=== PATIENT | male | born 1945 | race Caucasian/White ===

== ENCOUNTER 2023-08-04 14:35 | Emergency (ER) | payer MEDICARE, SELFPAY ==
[2023-08-04 14:41] VITALS: BMI 23.0
[2023-08-04 14:42] VITALS: BP 122/73
[2023-08-04 14:44] VITALS: BP 122/73
[2023-08-04 15:00] VITALS: BP 118/71
[2023-08-04 15:50] LABS: % Basophils 1.1 % (0-2); % Eosinophils 2.6 % (0-6); % Immature Granulocytes 0.5 % (0-0.5); % Lymphocytes 24.7 % (20.5-51.1); % Monocytes 7.9 % (1.7-9.3); % Neutrophils 63.2 % (42.2-75.2); Absolute Basophils 0.1 10^3/uL (0-0.2); Absolute Eosinophils 0.1 10^3/uL (0-0.7); Absolute Lymphocytes 1.4 10^3/uL (1.2-3.4); Absolute Monocytes 0.4 10^3/uL (0.1-0.6); Absolute Neutrophils 3.5 10^3/uL (1.4-6.5); Hematocrit 40.3 % (39.0-52.0); Hemoglobin 13.8 g/dL (13.0-18.0); Mean Corp Hgb Conc. 34.2 g/dL (33.0-37.0); Mean Corpuscular Hgb 29.7 pg (27.0-31.0); Mean Corpuscular Volume 86.9 fL (80.0-94.0); Mean Platelet Volume 10.2 fL (7.4-10.4); Nucleated Red Blood Cells % 0 % (-); Platelet Count 218 10^3/uL (130-400); Red Blood Cell Count 4.64 10^6/uL (4.70-6.10); Red Cell Dist. Width 13.1 % (11.5-14.5); White Blood Cell Count 5.5 10^3/uL (4.8-10.8)
[2023-08-04 16:01] VITALS: BP 101/81
[2023-08-04 16:08] LABS: ALT (SGPT) 13 U/L (0-50); AST (SGOT) 20 U/L (17-59); Albumin 4.1 g/dl (3.5-5.0); Alkaline Phosphatase 78 U/L (38-126); Blood Urea Nitrogen 17 mg/dl (9-20); Calcium 9.5 mg/dl (8.4-10.2); Carbon Dioxide 25 mmol/L (22-30); Chloride 108 mmol/L (98-107); Creatine Phosphokinase 36 U/L (55-170); Estimated Creatinine Clearance 72 ml/min; Glucose 143 mg/dl (70-99); Potassium 3.5 mmol/L (3.5-5.1); Sodium 142 mmol/L (135-145); Total Bilirubin 1.1 mg/dl (0.2-1.3); Total Protein 6.6 g/dl (6.3-8.2); eGFR > 60.00
--- NOTE | 2023-08-04 16:27 | ED.GENMED ---
History of Present Illness
General
Chief Complaint: Fall
Time Seen by Provider: 08/04/23 14:45
History of Present Illness
History of Present Illness:
78-year-old male presents to the emergency department for evaluation after a suspected fall. Patient was apparently porch states he was this. He was found outdoors by a neighbor with several clothing nonnormal was called. Patient denies any
injuries or pain at this time. is present at the bedside but she was not home during the event. Patient denies any chest pain or shortness of breath. He is not on any anticoagulants
Past History
Past History
ED Past Medical History: HTN, Hypercholesterolemia and NIDDM
ED Past Surgical History: Other (Anuerysm Infrarenal abd aorta)
Social History
Tobacco: Former smoker
Alcohol: Daily (whisky 1)
Personal:
Living: with family
Employment: Employed
Review of Systems
Review of Systems
Allergies reviewed?: Yes
All Other Systems: ROS reviewed and negative except as documented in HPI and ROS
Phy Exam
Physical Exam
Physical Exam:
GEN: Well appearing, NAD, WDWN
Eyes: PERRLA, EOMs intact, no scleral icterus
HENT: NCAT, oral mucosa moist
Lungs: CTAB, no wheezes, rales, rhonchi, normal chest wall excursion
Cardiac: RRR, no M/R/G, no peripheral edema. Radial pulses 2+ bilat
Abdomen: S, NT, ND, NABS, no masses or hepatosplenomegaly
Neuro: Alert and oriented to baseline. Cranial nerves II through XII grossly intact, bilateral upper and lower extremity strength is 5 out of 5 in all noyola
MSK: No gross deformity or ecchymosis. No edema. Stable pelvis with no crepitus or tenderness, normal bilateral hip range of motion. No midline cervical, thoracic, or lumbar spine tenderness to palpation
Skin: No rashes, petechiae. Normal color, no pallor or jaundice. Stage I decubitus ulcer to bilateral upper and lower gluteal regions
Psych: Calm, cooperative, proper hygiene
Course
Orders/Labs/Results
Orders:
Orders
08/04/23 15:11
CT Head W/o Iv Contrast Urgent
Comment:
Reason For Exam: fall unwitnessed
08/04/23 15:30
CPK [Creatine Phosphokinase] Urgent
Complete Blood Count/With Diff Urgent
Comprehensive Metabolic Panel Urgent
Abnormal Lab Results
08/04/23
15:30
RBC 4.64 L 10^6/uL
(4.70-6.10)
Chloride 108 H mmol/L
(98-107)
Glucose 143 H mg/dl
(70-99)
Creatine Kinase 36 L U/L
(55-170)
08/04/23 15:30
08/04/23 15:30
Vital Signs
Initial and Last Documented VS:
Initial Vital Signs
Pulse Resp Pulse Ox
78 21 96
08/04/23 14:41 08/04/23 14:41 08/04/23 14:41
Last Documented Vital Signs
Temp Pulse Resp BP Pulse Ox
99.5 F 82 21 122/73 93
08/04/23 14:42 08/04/23 14:45 08/04/23 14:45 08/04/23 14:44 08/04/23 14:45
MDM/Problems Addressed
MDM/Problems Addressed:
Patient's labs are reassuring. His temperature is and he has no diaphoresis concerning for environmental exposure issue. He was given some IV fluids and around via EMS. CT of the head is unremarkable and I see no evidence for other traumatic
injuries on exam, discharged into the care of his spouse
*Critical Care Note
Total Time (30-74mins, 75-104mins- exclusive of procedures): Not Applicable
ED Attending Note
-
Portions of this chart may have been created with voice recognition software.� Occasional wrong word or��sound alike� substitutions may have occurred due to the inherent limitations of voice recognition software.
Discharge Plan
Departure
Patient Disposition: Home (Routine Discharge)
Date of Disposition: 08/04/23
Time of Disposition: 16:27
Patient with high blood pressure during this ER visit?: No
Discharge Problem:
Unwitnessed fall
Instructions: Preventing falls in adults
Prescriptions:
No Action
metformin 500 MG tablet
1,000 mg PO BID
simvastatin 20 MG tablet
40 mg PO DAILY
coenzyme [id number] E 1 CAP capsule
1 cap PO DAILY
omega 1-kdx-oxn-fish oil 1 EACH capsule
1 ea PO DAILY
lisinopril 10 MG tablet
10 mg PO DAILY
cephalexin 500 MG capsule
500 mg PO QID 2 Days Qty: 8 0RF
Rx Instructions:
continue through 03/24/21 to complete 8 day antibiotic treatment regimen for cellulitis
Referrals:
Sergio Can MD [Family Provider] -
Discharge Date and Time
Print Language: VINCENTIAN
[2023-08-04 17:37] VITALS: BP 120/72
== END 2023-08-04 17:38 | disposition home or self-care (01) ==
LOC: EMR 14:35
PROVIDERS: Physician Assistant; EMERGENCY PHYSICIAN Emergency Medicine; FAMILY PHYSICIAN Internal Medicine
DX: Z04.3 Encounter for examination and observation following other accident (principal); I10 Essential (primary) hypertension; Z87.891 Personal history of nicotine dependence; W19.XXXA Unspecified fall, initial encounter
CPT/HCPCS: 99284; 70450; 80053; 82550; 85025

== ENCOUNTER 2024-02-01 11:15 | Observation (INO) | payer MEDICARE, SELFPAY ==
[2024-02-01] VITALS (10 sets, daily range): BP systolic 119–153; BP diastolic 74–90; PULSE 77; BMI 23.5
--- NOTE | 2024-02-01 05:33 | ED.GENMED ---
History of Present Illness
General
Chief Complaint: Fall
Source: patient, spouse ( who is at bedside) and ambulance crew
Exam Limitations: none
Time Seen by Provider: 02/01/24 05:09
Nursing documentation reviewed up to this point in time: agreed with
History of Present Illness
History of Present Illness:
This is an 79-year-old gentleman who resides at home with his . He has history of Alzheimer's dementia, hypertension, hyperlipidemia, GERD, mdg-ifzwelg-qfxospzdb diabetes. According to patient has had some generalized weakness over the
past 2 to 3 days, he has had a moist nonproductive cough and tonight he got up out of bed and suffered a fall while attempting to get out of bed.
She believes he struck his head. He did not lose consciousness.
He takes no anticoagulants.
He arrives via EMS.
Upon arrival patient noted to be significantly febrile with rectal temperature 101.3 �F. Both patient and were unaware that he was running a fever.
He has had a cough over the past several days. Mild dyspnea on exertion. Generalized weakness. No close contacts with similar symptoms.
Initially complaining of some left hip pain. He denies chest pain or abdominal pain, denies back pain or neck pain, denies headache. He does note mild pain to his right great toe and is noted to have complete avulsion of his right great toenail.
No active bleeding.
Prior history of smoking, he quit a number of years ago.
He has history of AAA, 3.1 cm, monitored annually with ultrasound.
Past History
Past History
ED Past Medical History: GERD, HTN, Hypercholesterolemia, NIDDM and Other (Dementia; 3.1 cm AAA)
ED Past Surgical History: None and Other (Anuerysm Infrarenal abd aorta)
Social History
Tobacco: Former smoker
Alcohol: Occasional (whisky 1)
Personal:
Living: with family
Employment: Retired
Family History
Family History: Other (Noncontributory)
Phy Exam
Physical Exam
Physical Exam:
GENERAL: 79-year-old gentleman appears his stated age, awake and alert, pleasant, mildly ill in appearance. Intermittent moist nonproductive cough is noted. is accompanying.
EYE: pupils equal and reactive. anicteric. The head is normocephalic, atraumatic.
NECK: Supple, no midline bony tenderness, full range of motion without difficulty nor pain, no meningismus, no significant adenopathy.
ENT: posterior pharynx is clear, oral mucosa is minimally dry. TM clear b/l, nares patent.
CARDIAC: Regular rate and rhythm. no murmur.
LUNGS: no acute respiratory distress, scant rales right base otherwise clear to auscultation. There is a superficial abrasion right anterior lower chest to right upper quadrant. No focal tenderness to palpation. No palpable bony abnormality.
ABDOMEN: Rotund, soft, nondistended, without focal tenderness, no r/g, no cvat. normoactive BS.
BACK: No midline bony tenderness. No palpable bony pelvic tenderness.
NEUROLOGICAL: Alert and oriented x2, no focal neuro deficits. Motor strength is 5/5 bilaterally. Gross sensation is intact.
SKIN: Mildly hot to touch and dry, normal color, skin intact. Superficial abrasion right upper quadrant/right anterolateral distal chest wall as above. No rash.
MUSCULOSKELETAL: No C/C/E. peripheral pulses are full and equal b/l. No palpable bony hip tenderness. Full hip range of motion bilaterally without difficulty nor pain. There is complete avulsion of right hallux toenail. Mild local tenderness to
palpation. No active bleeding.
PSYCH: Normal and appropriate interaction.
Course
Orders/Labs/Results
Orders:
Orders
02/01/24 05:03
Electrocardiogram (*1) Urgent
Reason for Study: Other
Other Reason for Exam: Possible Sepsis
Cardiac Monitoring- Treatment ONCE
EKG- Treatment ONCE
IV Insert/Care/Rem.- Treatment PRN
02/01/24 05:10
Complete Blood Count/With Diff Urgent
Comprehensive Metabolic Panel Urgent
Lactic Acid Q4H
Comment: ON ICE, CANCEL 2ND ORDER IF FIRST LACTIC ACID LEVEL <2
Urinalysis Reflex To Culture Urgent
Date Specimen was Collected: 02/01/24
Time Specimen was Collected: 05:03
Blood Culture Urgent
TUTU Source: Blood/Venous
Specimen Description:
Date Specimen was Collected: 02/01/24
Time Specimen was Collected: 05:04
02/01/24 05:11
COVID-19 Antigen Urgent
Source: Nasal Swab
Influenza A+B Rapid Molecular Urgent
TUTU Source: Nasal Swab
Specimen Description:
Date Specimen was Collected: 02/01/24
Time Specimen was Collected: 05:04
02/01/24 05:15
Blood Culture Urgent
TUTU Source: Blood/Venous
Specimen Description:
Date Specimen was Collected: 02/01/24
Time Specimen was Collected: 05:05
02/01/24 05:25
0.9% Sodium Chloride 1000 ml [Nss] 2,400 ml IV NOW STA
Acetaminophen 1000MG/100Ml [Ofirmev] 1,000 mg in 100 ml IV ONCE
Acetaminophen IV Indication:: ED Narcotic Naive Pt-ONCE
Foot, Right 3 View [CR Foot - Right Min 3 Views] Urgent
Comment:
Reason For Exam: fall, R great toe pain, foot pain
Hip, Left 2-3 Views [CR Hip - LT w/wo Pel 2-3 Vw*] Urgent
Comment:
Reason For Exam: fall, left hip pain
Include a pelvis x-ray?: Yes
02/01/24 05:26
CR Chest - 2 Views Urgent
Comment:
Reason For Exam: cough, fever
02/01/24 05:31
CT Head W/o Iv Contrast Urgent
Comment:
Reason For Exam: fall, questionable head injury
Abnormal Lab Results
02/01/24 02/01/24
05:10 05:11
RBC 4.65 L 10^6/uL
(4.70-6.10)
Absolute Lymphs (auto) 0.9 L 10^3/uL
(1.2-3.4)
Absolute Monos (auto) 0.8 H 10^3/uL
(0.1-0.6)
Neutrophils % 76.6 H %
(42.2-75.2)
Lymphocytes % 11.2 L %
(20.5-51.1)
Monocytes % 10.4 H %
(1.7-9.3)
BUN 22 H mg/dl
(9-20)
Glucose 196 H mg/dl
(70-99)
Urine Glucose 1+ A
(Negative)
SARS-CoV-2 Antigen Positive A
(Negative)
02/01/24 05:10
02/01/24 05:10
Vital Signs
Initial and Last Documented VS:
Initial Vital Signs
Temp
101.3 F H
02/01/24 04:40
Last Documented Vital Signs
Temp Pulse Resp BP Pulse Ox
101.3 F H 83 24 147/83 97
02/01/24 04:40 02/01/24 06:15 02/01/24 06:15 02/01/24 06:00 02/01/24 06:15
MDM/Problems Addressed
Differential Diagnosis Includes:
Patient presents after mechanical fall at home. Noted to be febrile along with history of cough over the past several days along with generalized weakness.
Concern for sepsis, pneumonia, UTI, viral syndrome.
Concern for occult closed head injury, occult left hip/pelvic fracture. Right great toe fracture.
Will initiate IV fluid bolus, IV Tylenol.
Labs are pending including lactic acid, COVID and flu testing, urinalysis with reflex to culture.
Will check CT of the head, chest x-ray, pelvis and left hip x-ray as well as right foot x-ray.
Chronic conditions affecting care: DM, HTN and Neurological disorder (Dementia)
*Pulse Oximetry
Patient hypoxic: no
*EKG
Interpreted by ED Provider?: Yes
Interpretation: normal
Comparison EKG: no comparison EKG present
Rate: normal
Rhythm: sinus
Radiant: normal axis
Interval: normal interval
QRS Pattern: normal QRS
Ischemia: no ischemia
*Protective Services Officer Interpretation
Rate: normal
Interpretation: normal
Rhythm: sinus
*Critical Care Note
Total Time (30-74mins, 75-104mins- exclusive of procedures): Not Applicable
Update Note
Update Note:
06:45
Patient is COVID-positive. I suspect this is source of his fever.
Due to profound weakness, fever, patient is at risk for recurrent falls, worsening debility, thus will require acute hospitalization.
Labs are unremarkable save for moderately elevated random glucose of 196. Lactic acid is normal. Urinalysis is negative.
Awaiting head CT and x-ray imaging.
ED Attending Note
-
Portions of this chart may have been created with voice recognition software.� Occasional wrong word or��sound alike� substitutions may have occurred due to the inherent limitations of voice recognition software.
Discharge Plan
Departure
Covid-19: Confirmed COVID-19
Discharge Problem:
COVID-19, mechanical fall at home, nail avulsion right hallux
Prescriptions:
No Action
metformin 500 MG tablet
1,000 mg PO BID
Patient Comments:
PHARMACY TO CHECK, hasnt taken meds in ' a long time'
simvastatin 20 MG tablet
40 mg PO DAILY
Patient Comments:
PHARMACY TO CHECK, hasnt taken meds in ' a long time'
coenzyme [id number]-qthnzbr E 1 CAP capsule
1 cap PO DAILY
Patient Comments:
hasn't taken any meds in 'a long time' PHARMACY TO CHECK
omega 1-owh-obv-fish oil 1 EACH capsule
1 ea PO DAILY
Patient Comments:
PHARMACY TO CHECK, hasnt taken meds in ' a long time'
lisinopril 10 MG tablet
10 mg PO DAILY
Patient Comments:
PHARMACY TO CHECK, hasnt taken meds in ' a long time'
glimepiride 2 mg Tablet
2 mg PO DAILY
Patient Comments:
PHARMACY TO CHECK, hasnt taken meds in ' a long time'
duloxetine 30 mg Capsule,Delayed Release(Dr/Ec)
30 mg PO DAILY
Patient Comments:
PHARMACY TO CHECK, hasn't taken meds in 'a lonb time'
Referrals:
Sergio Can MD [Family Provider] -
Interventions
Interventions:
*Risk Screen - Suicide Last Done: 02/01/24 04:53
*General Assessment Last Done: 02/01/24 04:53
*Neglect/Abuse Screening Last Done: 02/01/24 04:53
ED- Fall Risk Assessment Last Done: 02/01/24 04:58
*ED COVID-19 Vaccine History Last Done: 02/01/24 04:53
ED-Musculoskeletal Assessment Last Done: 02/01/24 04:58
ED- Neurological Assessment Last Done: 02/01/24 04:58
ED-Skin Assessment Last Done: 02/01/24 05:02
Discharge Date and Time
Print Language: ROMANSH
[2024-02-01 05:38] LABS: % Basophils 0.5 % (0-2); % Eosinophils 0.8 % (0-6); % Immature Granulocytes 0.5 % (0-0.5); % Lymphocytes 11.2 % (20.5-51.1); % Monocytes 10.4 % (1.7-9.3); % Neutrophils 76.6 % (42.2-75.2); Absolute Eosinophils 0.1 10^3/uL (0-0.7); Absolute Lymphocytes 0.9 10^3/uL (1.2-3.4); Absolute Monocytes 0.8 10^3/uL (0.1-0.6); Absolute Neutrophils 5.9 10^3/uL (1.4-6.5); Hematocrit 40.5 % (39.0-52.0); Hemoglobin 14.1 g/dL (13.0-18.0); Mean Corp Hgb Conc. 34.8 g/dL (33.0-37.0); Mean Corpuscular Hgb 30.3 pg (27.0-31.0); Mean Corpuscular Volume 87.1 fL (80.0-94.0); Mean Platelet Volume 9.9 fL (7.4-10.4); Nucleated Red Blood Cells % 0 % (-); Platelet Count 184 10^3/uL (130-400); Red Blood Cell Count 4.65 10^6/uL (4.70-6.10); Red Cell Dist. Width 13.1 % (11.5-14.5); White Blood Cell Count 7.7 10^3/uL (4.8-10.8)
[2024-02-01 05:42] LABS: COVID-19 Antigen Positive (Negative)
[2024-02-01 05:45] LABS: Lactic Acid 1.7 mmol/L (0.7-2.0)
[2024-02-01 05:46] LABS: ALT (SGPT) 20 U/L (0-50); AST (SGOT) 27 U/L (17-59); Albumin 4.5 g/dl (3.5-5.0); Alkaline Phosphatase 78 U/L (38-126); Blood Urea Nitrogen 22 mg/dl (9-20); Calcium 9.2 mg/dl (8.4-10.2); Carbon Dioxide 25 mmol/L (22-30); Chloride 99 mmol/L (98-107); Estimated Creatinine Clearance 81 ml/min; Glucose 196 mg/dl (70-99); Potassium 4.2 mmol/L (3.5-5.1); Sodium 135 mmol/L (135-145); Total Bilirubin 1.2 mg/dl (0.2-1.3); Total Protein 7.2 g/dl (6.3-8.2); Urine Albumin Negative (Neg - Trace); Urine Bilirubin Negative (Negative); Urine Character Clear (Clear); Urine Color Yellow; Urine Glucose 1+ (Negative); Urine Ketone Negative (Negative); Urine Leukocyte Negative (Negative); Urine Nitrite Negative (Negative); Urine Occult Blood Negative (Negative); Urine Urobilinogen Negative (Neg - 1+); eGFR > 60.00
[2024-02-01] MEDS: OFIRMEV 100 IV (05:58)
[2024-02-01] MEDS: NSS 2400 ML IV (06:01)
--- NOTE | 2024-02-01 08:35 | CM ---
Addendum entered by Monique Byrd RN 02/01/24 15:25:
CM confirmed discharge lemon picker time at 1700.
Addendum entered by Monique Byrd RN 02/01/24 14:24:
CM confirmed that MSSP Waiver program has been approved for [facility].
[facility]
Report:
[phone]

Addendum entered by Monique Byrd RN 02/01/24 14:05:
[facility] is able to accept. Patient and are in agreement with plan. CM [facility] to [facility].
Addendum entered by Monique Byrd RN 02/01/24 12:27:
Patient is eligible for MSSP program. CM provided patient's with choices through program. She is agreeable to have referrals sent to all facilities to increase likelihood of finding a bed.
[facility] letter given and discussed.
Referrals sent via [facility].
Original Note:
CM reviewed medical records. On review of insurance, patient has fee for service Medicare and will have to be private pay from the emergency room. CM updated ED physician. CM will follow PT recommendations for further discharge planning efforts.
MIO left message for Melodie at [facility] to confirm if patient is eligible for MSSP program.
--- NOTE | 2024-02-01 08:53 | PHANOTE ---
MED REC NOTE- PATIENT SPOUSE IN ROOM, SHE HAS PATIENT OLD MEDICATION BUT PATIENT HAS BEEN TAKING THEM FOR YEARS BUT TO A FAMILY TO [facility] TO HELP OUT AND CARE GIVE TO THE PATIENT. BUT THE FAMILY MIXED ALL MEDICATION UP INCLUDE SPOUSE MEDS. ID MEDS
IN [facility] TECH SIMVASTATIN 40MG QPM, MECLIZINE 12.5MG PRN, GLIMEPIRIDE 2MG DAILY. CYMBALTA 30MG DAILY
--- NOTE | 2024-02-01 10:39 | HPS.HSE ---
Family Physician
-
Family Physician: Christiano Can
Chief Complaint
-
Worsening weakness
History of Present Illness
79-year-old male with a past medical history of Alzheimer's dementia, dyspepsia, hypertension, nonalcoholic fatty liver disease, neuropathy, type 2 diabetes, spinal stenosis, abdominal aortic aneurysm, and gait dysfunction presented to the ER with
worsening weakness and mechanical fall. Patient has dementia, most of the history is obtained from his . His reports that he has been weak for months, and it has progressively worsened in the last 2-3 days. Patient was so weak he could
not get out of bed, and had a fall. He may have struck his head, no loss of consciousness. He was found to be febrile in the ER, with a rectal temperature of 101.3. He was found to have COVID. He has received his COVID vaccines and boosters.
reports that he has been having a dry cough and mild dyspnea with activity. No known sick contacts. No nausea, no vomiting, no diarrhea. No chest pain. He walks with a walker at home.
Medical History
Past Medical History
Past Medical History: Reports Other
Additional Past Medical History:
Alzheimer's dementia, dyspepsia, hypertension, nonalcoholic fatty liver disease, neuropathy, type 2 diabetes, spinal stenosis severe L4-L5, abdominal aortic aneurysm 3.2 cm, gait dysfunction
Past Surgical History: Reports Other
Additional Past Surgical History:
Excision of subcutaneous mass/lipoma of right mid back, sebaceous cyst removal, bilateral cataract surgery, wisdom teeth, right lower leg wound debridement, AAA surg
Social History
Tobacco: Former Smoker
Alcohol: Daily
Drug: None
Personal:
Living: With Family
Family History
Family History: Other (Father: Heart disease, hypertension. Mother: Hypertension, heart disease, and stroke.)
Allergies / Home Medications
Allergies reflects when Allergies were last updated in [employer].
Home Medications with original date entered in [employer]
Allergy/Medication List:
Allergies
Allergy/AdvReac Type Severity Reaction Status Date / Time
penicillin V Allergy Hives Verified 02/01/24 10:46
Penicillins Allergy Hives Verified 02/01/24 10:46
Home Medications Table - record
�Medication �Instructions �Recorded �Confirmed
No Meds [No Current Medications] 02/01/24 02/01/24
Review of Systems
-
A 12 point ROS was completed and negative except as noted: Yes
Physical Exam
Vital Signs
Vital Signs
Temp Pulse Resp BP Pulse Ox
98.1 F 74 18 150/77 98
02/01/24 07:40 02/01/24 08:00 02/01/24 08:00 02/01/24 08:00 02/01/24 07:05
Physical Exam
General: No Apparent Distress
HEENT: NormoCephalic, Anicteric and Moist mucous membranes
Respiratory: Clear
Cardiac: S1/S2 and Regular Rhythm
GI: Soft, Non Tender, Non Distended and Normal Bowel Sounds
Musculoskeletal: No Clubbing and No Cyanosis
Neuro: Oriented (Oriented to person and place but not time)
Psych: Calm
Laboratory Results
-
02/01/24 05:10
02/01/24 05:10
Laboratory Results
Lactic Acid Cancelled 02/01/24 09:15
Total Bilirubin 1.2 mg/dl (0.2-1.3) 02/01/24 05:10
AST 27 U/L (17-59) 02/01/24 05:10
ALT 20 U/L (0-50) 02/01/24 05:10
Alkaline Phosphatase 78 U/L (38-126) 02/01/24 05:10
Impression/Plan
-
HPI: 79-year-old male with a past medical history of Alzheimer's dementia, dyspepsia, hypertension, nonalcoholic fatty liver disease, neuropathy, type 2 diabetes, spinal stenosis, abdominal aortic aneurysm, and gait dysfunction presented to the ER
with worsening weakness and mechanical fall. Patient has dementia, most of the history is obtained from his . His reports that he has been weak for months, and it has progressively worsened in the last 2-3 days. Patient was so weak he
could not get out of bed, and had a fall. He may have struck his head, no loss of consciousness. He was found to be febrile in the ER, with a rectal temperature of 101.3. He was found to have COVID. He has received his COVID vaccines and
boosters. reports that he has been having a dry cough and mild dyspnea with activity. No known sick contacts. No nausea, no vomiting, no diarrhea. No chest pain. He walks with a walker at home.
#Acute on chronic weakness
#Mechanical falls
Head CT negative for acute intracranial abnormalities, hip and foot x-ray negative for acute fracture or dislocation
Patient has been chronically weak for the last 2-3 months, now worsened secondary to acute coronavirus infection
Seen by PT in the ER, who recommends short-term rehab at half-way facility
Case management arranging for short-term rehab
Discharge to short-term rehab when bed available
#Acute coronavirus infection
Chest x-ray negative for pneumonia
He has received his coronavirus vaccines and booster
Patient is afebrile, has a mild cough
Fever started 02/01/24, isolate for 10 days through 02/11/24
Start Paxlovid day 1, Macy Chaparro, supportive care
#Alzheimer's dementia
He is oriented to person and place but not time
Makes his own medical decisions
#Type 2 diabetes
He used to be on glimepiride 2 mg daily & metformin 1000 mg BID, he has not taken it
Check hemoglobin A1c, carb controlled diet, sliding scale insulin for now
#Benign essential hypertension
He used to be on lisinopril 10 mg daily, he has not taken it
Resume lisinopril 10 mg daily here
#Anxiety/depression
He used to be on duloxetine 30 mg daily, he has not taken
Resume duloxetine 30 mg daily
#Hyperlipidemia
He used to be on simvastatin 40 mg daily
This medication is contraindicated while on Paxlovid
DVT ppx - SQ lovenox
DNR confirmed upon admission in front of
Total time spent to see the patient on the floor, examine the patient, review data and lab results, discuss treatment plan with patient, nursing staff around 77 minutes.
[2024-02-01] MEDS: PAXLOVID 2X150 MG-100 MG DOSE PACK 1 DOSE PO (10:55)
[2024-02-01] MEDS: ZESTRIL 10 MG PO (12:11)
--- NOTE | 2024-02-01 14:42 | W.DCSUMMARY ---
Discharge Summary
Discharge Data
Date of Admission: 02/01/24
Date of Discharge: 02/01/24
-
Pending Results: No
Hospital Course
Discharge diagnosis:
Acute on chronic weakness
Mechanical fall
Acute coronavirus infection
Alzheimer's dementia
Type 2 diabetes
Benign essential hypertension
Hyperlipidemia
Hospital course:
79-year-old male with a past medical history of Alzheimer's dementia, dyspepsia, hypertension, nonalcoholic fatty liver disease, neuropathy, type 2 diabetes, spinal stenosis, abdominal aortic aneurysm, and gait dysfunction presented to the ER with
worsening weakness and mechanical fall. Patient has dementia, most of the history is obtained from his . His reports that he has been weak for months, and it has progressively worsened in the last 2-3 days. Patient was so weak he could
not get out of bed, and had a fall. He may have struck his head, no loss of consciousness. He was found to be febrile in the ER, with a rectal temperature of 101.3. He was found to have COVID. He has received his COVID vaccines and boosters.
reports that he has been having a dry cough and mild dyspnea with activity. No known sick contacts. No nausea, no vomiting, no diarrhea. No chest pain. He walks with a walker at home.
Patient has been chronically weak for the last 2-3 months, now worsened secondary to acute coronavirus infection.
Head CT was negative for acute intracranial abnormalities, hip and foot x-ray also negative for acute fracture or dislocation.
Patient was treated with Paxlovid for his coronavirus. He also received supportive care with Mucinex. He can continue Paxlovid upon discharge.
Patient has not been receiving his medications at home. He was resumed on lisinopril 10 mg daily, glimepiride 2 mg daily, metformin 1000 mg twice a day, and duloxetine 30 mg daily.
He is supposed to be taking simvastatin as well. This medication is contraindicated while taking Paxlovid.
Patient was seen in conjunction with speech pathologist, who recommends a soft/bite-size diet with thin liquids. He needs to follow-up with [facility] at the rehab.
Patient is medically stable for discharge. He needs to isolate through 02/11/2024 for his coronavirus. He needs to follow-up with his primary care doctor 1 week after he leaves rehab.
Disposition: Short-term rehab
Discharge planning: Required 39 minutes
Discharge Plan
-
Patient Disposition: [facility]NF
Discharge Diagnosis/Procedures: Acute on chronic weakness, acute coronavirus infection, diabetes, dementia, hypertension
Condition: Fair
Diet: Diabetic, Carb Controlled
Activity: As tolerated
Activity Restrictions/Additional Instructions:
Follow-up with your primary care doctor 1 week after you leave rehab.
Referrals:
Sergio Can MD [Family Provider] - in one week
Prescriptions:
New
acetaminophen 325 mg Tablet
650 mg PO Q4HPRN PRN (Reason: mild pain/SUNG/temp> 100.4F) Qty: 0 0RF
Paxlovid 300 mg (150 mg x 2)-100 mg Tablets,Dose Pack
1 ea PO BID 5 Days Qty: 10 0RF
lisinopril 10 mg Tablet
10 mg PO DAILY Qty: 0 0RF
duloxetine 30 mg capsule, delayed rel sprinkle
30 mg PO DAILY Qty: 30 0RF
guaifenesin [Mucinex] 600 mg tablet extended release 12hr
600 mg PO BID Qty: 60 0RF
glimepiride 2 mg tablet
2 mg PO DAILY Qty: 30 0RF
metformin 1,000 mg tablet
1,000 mg PO BID Qty: 60 0RF
Discharge Orders:
Discharge Patient (As Directed); Ordered 02/01/24
Ordered By: Mati Rodriguez
Discharge Date and Time
Print Language: ARMENIAN
--- NOTE | 2024-02-01 15:35 | PTOTSP ---
ST Acute Care Evaluation
Pt currently presents with clinical signs consistent with mild oropharyngeal and esophageal dysphagia characterized by prolonged mastication and bolus formation, prolonged oral bolus manipulation and prolusion posteriorly, occasional overt s/s of
penetration/aspiration with both solids and liquids, as well as persistent eructation s/p ingestion of liquids.
Recommendations:
- DOWNGRADE diet to SOFT BITE SIZED SOLIDS and continue with THIN LIQUIDS and meds whole as tolerated.
- Aspiration precautions: Would highly recommend FULL SUPERVISION with PO intake; HOB fully upright for ALL PO intake; SMALL bites, small sips, SLOW intake rate.
- Consider GI consult and/or trial of GERD medication for suspected esophageal dysfunction.
- HEMATOLOGY TECHNICIAN to f/u re: diet tolerance and to determine if pt would benefit from an instrumental swallow study.
== END 2024-02-01 17:15 ==
LOC: ED 11:15
PROVIDERS: ADMITTING PHYSICIAN Family Medicine; EMERGENCY PHYSICIAN Emergency Medicine; FAMILY PHYSICIAN Internal Medicine
DX: U07.1 COVID-19 (principal); R50.9 Fever, unspecified; G30.9 Alzheimer's disease, unspecified; F32.A Depression, unspecified; F02.C3 Dementia in other diseases classified elsewhere, severe, with mood disturbance; I10 Essential (primary) hypertension; E78.00 Pure hypercholesterolemia, unspecified; K21.9 Gastro-esophageal reflux disease without esophagitis; E11.40 Type 2 diabetes mellitus with diabetic neuropathy, unspecified; W06.XXXA Fall from bed, initial encounter; Y93.89 Activity, other specified; Y92.003 Bedroom of unspecified non-institutional (private) residence as the place of occurrence of the external cause; R05.9 Cough, unspecified; R53.1 Weakness; G31.9 Degenerative disease of nervous system, unspecified; R06.09 Other forms of dyspnea; M25.552 Pain in left hip; M79.674 Pain in right toe(s); S91.201A Unspecified open wound of right great toe with damage to nail, initial encounter; Z87.891 Personal history of nicotine dependence; Z86.79 Personal history of other diseases of the circulatory system; Z91.81 History of falling; Z82.49 Family history of ischemic heart disease and other diseases of the circulatory system; Z82.3 Family history of stroke; Z88.0 Allergy status to penicillin; Z66 Do not resuscitate; Z79.84 Long term (current) use of oral hypoglycemic drugs
CPT/HCPCS: 70450; 71046; 73502; 73630; 80053; 81003; 83605; 85025; 87040; 87502; 87811; 92610; 93005; 96360; 96361; 99285; G0378